=== PATIENT | female | born 1965 | race African-American/Black ===

== ENCOUNTER 2025-01-31 08:15 | Outpatient (REF) | payer OTHER, SELFPAY | END 2025-01-31 08:16 | disposition home or self-care (01) | LOC: HO.HPHYSR 08:15 | PROVIDERS: Visit Provider Physical Medicine & Rehabilitation | DX: M54.16 Radiculopathy, lumbar region (principal) | CPT/HCPCS: 62323; J2003; J3301; Q9967 ==

== ENCOUNTER 2025-01-31 08:15 | Outpatient (AMB) | payer OTHER, SELFPAY ==
[2025-01-31 08:16] VITALS: PULSE 87; TEMP 36.4; BMI 25.1
--- NOTE | 2025-01-31 08:16 | A.PHYSOV_ITS ---
Vital Signs 01/31/25 08:16 Height 6 ft 1 in Weight 190 lb BMI 25.1 Pulse 87 Temp 97.5 F Intake Visit Reasons: Lumbar Interlaminar Epidural L5-S1 Allergies codeine Allergy (Unknown, Verified 01/31/25 08:15) Unknown [facility] Surgical History (Updated 01/29/25 @ 09:51 by Kera Kaur MA) History of hernia repair (Unknown) History of gastric bypass (Unknown) Social History (Updated 01/29/25 @ 09:52 by Kera Kaur MA) Alcohol intake: current Alcohol intake frequency: holidays/special occasions only Use of substances other than those prescribed or required for medical reasons: No Have you been hit, kicked, punched, or otherwise hurt by someone within the past year? If so, by whom?: No Physical Exam Vital Signs: Last Vital Signs Temp 97.5 F 01/31/25 08:16 Pulse 87 01/31/25 08:16 BMI result Body Mass Index 25.1 Office Procedures Procedure Details: Procedure performed: L5-S1 lumbar epidural steroid injection Preop diagnosis: Lumbar radiculitis Postop diagnosis: The same Anesthesia: Local After informed consent was obtained patient was brought into the procedure room and placed in the prone position on the procedure table. Skin over the lumbar sacral area was prepped and draped in usual sterile manner. L5-S1 interlaminar space was visualized utilizing fluoroscopy. After skin was anesthetized with 1% lidocaine solution, 3.5 in 20 gauge Toughy needle was introduced percutaneously and advanced toward the epidural space at the indicated level. Loss of resistance technique was utilized. Needle placement was verified utilizing 3 cc of Omnipaque contrast solution. Excellent epidural spread was visualized without evidence of vascular uptake. Total volume of 8 cc containing 2 cc of 1% lidocaine, 40 mg of triamcinolone and normal saline solution were injected after negative aspiration for blood and cerebrospinal fluid. Radiation exposure was documented in the chart. Lumbar Interlaminar Epidural 24257- use with FL Gd order: Lumbar Interlaminar Epidural Steroid Injection 32505 Procedure code (CPT) selection complete Office Meds Kenalog 40 mg/mL suspension for injection Performing Provider: Franck Perez DO Performing Location: [facility] Administered by: Franck Perez DO on 01/31/25 08:40 Dose Route Admin Location Dispensed Lot Number Expiration Date [employer] 40 mg epidural 1 mL [address]-9 [employer] Total Dispensed Waste 1 mL 0 % lidocaine (PF) 10 mg/mL (1 %) injection solution Performing Provider: Franck Perez DO Performing Location: [facility] Administered by: Franck Perez DO on 01/31/25 08:40 Dose Route Admin Location Dispensed Lot Number Expiration Date [facility] [place] [employer] 50 mg epidural 5 mL [id number] [facility] Total Dispensed Waste 5 mL 0 % Omnipaque 300 300 mg iodine/mL intravenous solution Performing Provider: Franck Perez DO Performing Location: [facility] Administered by: Franck Perez DO on 01/31/25 08:40 Dose Route Admin Location Dispensed Lot Number Expiration Date [facility] [place] [employer] 3 mL epidural 10 mL [id number] [employer] [facility] Total Dispensed Waste 10 mL 70 % Assessment & Plan Assessment & Plan (1) Lumbar radiculopathy: Code(s): M54.16 - Radiculopathy, lumbar region Category: Medical Plan: Procedure Plan Procedure Orders: Orders AMB Lumbar Interlaminar Epidural Steroid Injection Today M54.16 - Radiculopathy, lumbar region FL Gd L Spine Interlaminar Inj Today M54.16 - Radiculopathy, lumbar region Coding Level of Care Code Procedure Only Diagnoses Lumbar radiculopathy M54.16 CPT Codes Lumbar Interlaminar Epidural Steroid I - 20424 - Lumbar Interlaminar Epidural: Lumbar Interlaminar Epidural Steroid Injection 30358 ([id number])
== END 2025-01-31 08:55 | disposition home or self-care (01) ==
PROVIDERS: Visit Provider Physical Medicine & Rehabilitation
DX: M54.16 Radiculopathy, lumbar region (principal)
CPT/HCPCS: 62323

== ENCOUNTER 2025-02-06 11:56 | Outpatient (REF) | payer OTHER, SELFPAY ==
--- NOTE | 2025-02-06 12:30 | EMG_ITS ---
Chief complaint: Chronic back pain, usually left-sided sciatica. Noted right footdrop 6 months ago. Although has noted some improvement on the strength of right foot. Had interlaminar epidural injection 01/31/2025 with improvement of the left sciatica. History of arthritis. Remote history of thyroid dysfunction when she was in her 20s. Reason for referral: Evaluate for peroneal neuropathy versus radiculopathy Referred by: Balaji BARBOSA Procedure done: Bilateral lower extremity NCS/EMG Precautions and/or limitations: None The limb temperature was monitored continuously and remained between 32-36 degrees C during the performance of the NCS. Nerve Conduction Studies Anti Sensory Summary Table ?Stim Site NR Onset (ms) Norm Onset (ms) Peak (ms) Norm Peak (ms) O-P Amp (?V) Norm O-P Amp Site1 Site2 Delta-0 (ms) Dist (cm) John (m/s) Norm John (m/s) Right Sup Peron Anti Sensory (Ankle) Lateral Leg NR <4.4 >5.0 Lateral Leg Ankle 14.0 Left Sural Anti Sensory (Lat Mall) Calf ? 3.8 4.8 <4.0 5.9 >5.0 Calf Lat Mall 3.8 14.0 37 ? 3.7 4.4 3.2 Right Sural Anti Sensory (Lat Mall) Calf ? 4.4 5.2 <4.0 4.1 >5.0 Calf Lat Mall 4.4 14.0 32 ? 4.6 5.3 5.3 Motor Summary Table ?Stim Site NR Onset (ms) Norm Onset (ms) O-P Amp (mV) Norm O-P Amp iAmp (mV) Amp (1st) (%) Site1 Site2 Delta-0 (ms) Dist (cm) John (m/s) Norm John (m/s) Right Peroneal Motor (Ext Dig Brev) Ankle NR <4.0 >2.5 Ankle Ext Dig Brev 0.0 B Fib NR B Fib Ankle 0.0 >40 Poplt ? 19.8 0.0 0.5 Poplt B Fib 0.0 >40 Left Tibial Motor (Abd Navarro Brev) Ankle ? 5.9 <5 5.8 >2.5 8.7 100.0 Ankle Abd Navarro Brev 5.9 0.0 Knee ? 16.6 4.0 7.2 69.0 Knee Ankle 10.7 43.0 40 >40 Right Tibial Motor (Abd Navarro Brev) Ankle ? 5.4 <5 6.2 >2.5 9.1 100.0 Ankle Abd Navarro Brev 5.4 0.0 Knee ? 16.3 5.2 7.6 83.9 Knee Ankle 10.9 42.0 39 >40 EMG ?Side Muscle Nerve Root Ins Act Fibs Psw Amp Dur Poly Recrt Int Pat Comment Right AbdHallucis MedPlantar S1-2 Nml Nml Nml Nml Nml 0 Nml Complete Right AntTibialis Dp Br Peron L4-5 Incr 1+ 1+ Nml Nml 0 Nml Complete Right PostTibialis Tibial L5, S1 Nml Nml Nml Nml Nml 0 Nml Complete Right MedGastroc Tibial S1-2 Nml Nml Nml Nml Nml 0 Nml Complete Right VastusMed Femoral L2-4 Nml Nml Nml Nml Nml 0 Nml Complete Left AbdHallucis MedPlantar S1-2 Nml Nml Nml Nml Nml 0 Nml Complete Left AntTibialis Dp Br Peron L4-5 Nml Nml Nml Nml Nml 0 Nml Complete Left PostTibialis Tibial L5, S1 Nml Nml Nml Nml Nml 0 Nml Complete Left MedGastroc Tibial S1-2 Nml Nml Nml Incr Incr 0 Nml Complete Left VastusMed Femoral L2-4 Nml Nml Nml Nml Nml 0 Nml Complete Right Peroneus Long Sup Br Peron L5-S1 Incr 1+ 1+ Nml Nml 0 Nml Complete Paraspinal EMG ?Side Muscle Nerve Root Ins Act Fibs Psw Comment Right Lumbar Upper Rami Nml Nml Nml Right Lumbar Mid Rami Nml Nml Nml Right Lumbar Lower Rami Nml Nml Nml Left Lumbar Upper Rami Nml Nml Nml Left Lumbar Mid Rami Nml Nml Nml Left Lumbar Lower Rami Incr 1+ 1+ FINDINGS: Right peroneal nerve showed absent response distally in below the knee. Very small amplitudes above the knee. Right tibial nerve showed prolonged distal latency, normal amplitude and slow conduction velocity. Left tibial nerve showed prolonged distal latency, normal amplitude and normal conduction velocity. Bilateral sural sensory nerves showed prolonged peak latency. Right superficial peroneal nerve showed absent response. Concentric needle EMG was performed in selected muscles of the bilateral lower extremity. Study revealed signs of electric abnormalities as shown in the table above. Right peroneus longus and tibialis anterior showed increased insertional activity, PSWs and fibrillations. Left medial gastrocnemius showed increased duration and amplitude. Left lower lumbar paraspinals showed increased insertional activity, PSWs and fibrillations. IMPRESSION: 1. This is an abnormal study. 2. 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 3. There is electrodiagnostic evidence for chronic left L5-S1 radiculopathy. 4. Can not rule out a more diffuse polyneuropathy. CLINICAL COMMENT: Watch out for any further weakness on other parts of her body. Consider repeat EMG in 3 months, sooner if more neurologic deficits or weakness develop. Thank you for your kind referral. Bela Prince MD, BINDU Board Certified, [place] [employer] and Rehabilitation (ABPMR) Board Certified, [place] Board [employer] Electrodiagnostic Medicine (ABEM) CODIN 66681 x 2 extremities MTDD
== END 2025-02-06 11:57 | disposition home or self-care (01) ==
LOC: HO.NEURO 11:56
PROVIDERS: PCP Physician Assistant; Visit Provider Physician Assistant
DX: M21.371 Foot drop, right foot (principal)
CPT/HCPCS: 95886; 95909

== ENCOUNTER → 2025-02-06 12:57 | Outpatient (BNV) | payer OTHER, SELFPAY | PROVIDERS: PCP Physician Assistant; Visit Provider Physical Medicine & Rehabilitation | DX: G57.31 Lesion of lateral popliteal nerve, right lower limb (principal); M54.42 Lumbago with sciatica, left side | CPT/HCPCS: 95886; 95909 ==

== ENCOUNTER 2025-02-18 09:11 | Outpatient (AMB) | payer OTHER, SELFPAY ==
--- NOTE | 2025-02-18 09:18 | A.PHYSOV ---
Vital Signs 02/18/25 09:19 Height 6 ft 1 in Weight 190 lb BMI 25.1 Intake Visit Reasons: F/U after injection 01/31/2025 Intake Note: Patient is a 59 year old female here today for follow up after 01/31/25 L5-S1 VENTURA. Technical Trainer Required: No Allergies codeine Allergy (Unknown, Verified 02/18/25 09:19) Unknown HPI Comments Details: History of Present Illness The patient is a 59 year old female presenting for a follow-up visit after receiving an epidural steroid injection for back and leg pain. She reports a 90% improvement in her pain since the procedure and is no longer in pain all day. Her sciatica has resolved, with the exception of two episodes during the first weekend after the injection, and she can now stand to perform activities like washing dishes without the pain she previously experienced. This was not her first injection; she had a prior negative experience that made her hesitant to undergo the procedure again. Currently, her primary complaint is a grinding or crunch feeling in her right sacroiliac joint area, which is painful. This pain is intermittent, occurring with activities like walking, and flared up for a couple of days after two separate instances of prolonged walking in the last two weeks. She also notes that she can move her right big toe down but is unable to lift it up. For pain management, she uses tramadol as needed, particularly at night when the pain is at its worst. She states she uses it sparingly and has not taken any this week. The patient had a nerve conduction study about a week ago with Dr. Lo, and the report is pending. During that study, the provider noted something and recommended a repeat test in three months. The patient has a history of a thyroid condition in her 20s, which came up during questioning at her nerve conduction study, but she has not been treated for it since that time. Pain Description - Onset and Timing: The patient reports her current pain is intermittent and often worse at night when lying down. - Quality and Character: She describes the pain as a crunch or grinding, bone on bone sensation. - Primary Location: The pain is localized to the right sacroiliac joint area in a circular pattern. - Severity: She currently rates her pain as 0 out of 10 at rest. - Exacerbating Factors: Pain is worsened by walking long distances and side bending. - Relieving Factors: A recent epidural injection provided 90% improvement in her previous back and leg pain. - Associated Symptoms: She reports an inability to lift her right great toe. Procedure; L5-S1 VENTURA January 2025 90% reduction of her pain - Tests and Diagnostics: A nerve conduction study was performed approximately one week ago; the report is pending. - The performing provider noted an unspecified finding and recommended a repeat study in 3 months. [facility] Surgical History History of hernia repair (Unknown) History of gastric bypass (Unknown) Social History Alcohol intake: current Alcohol intake frequency: holidays/special occasions only Patient Tobacco Use Status: Never used Tobacco Review of Systems Narrative Review of Systems - Constitutional: Reports feeling good. - Musculoskeletal: Reports intermittent, painful grinding in her right SI joint. - Neurological: Reports an inability to lift her right great toe. - Denies radicular leg pain. - Reports improved balance. - Endocrine: Reports a history of a thyroid condition in her 20s; denies current treatment. Physical Exam Exam Exam: Physical Exam - Musculoskeletal: Localized tenderness to palpation over the right sacroiliac joint. She is otherwise nontender. - Lumbar spine range of motion is non-provocative with forward flexion and extension. - Lateral bending is provocative. - Neurological: Motor strength examination reveals weakness of right great toe dorsiflexion (extensor hallucis longus). - weak EHL on the right. - she is otherwise neurovascularly intact. Vital Signs: BMI result Body Mass Index 25.1 Assessment & Plan Assessment & Plan (1) Lumbar radiculopathy: Code(s): M54.16 - Radiculopathy, lumbar region Category: Medical (2) Lumbar spondylosis: Code(s): M47.816 - Spondylosis without myelopathy or radiculopathy, lumbar region Category: Medical Plan Pain Management - Analgesia: The patient reports 90% pain relief in her back and leg following a recent epidural steroid injection. - She rates her current pain as 0/10 at rest. - She uses tramadol sparingly for breakthrough pain, primarily at night or after increased activity, and requests a refill. - Affect: She reports feeling much better and is no longer upset by being in constant pain. - Activities of Daily Living: She can now perform daily tasks like washing dishes without pain. - Prolonged walking has caused pain flares. - Adverse Effects: No adverse effects from medications were reported. - Aberrant Drug-Related Behaviors: The patient reports using tramadol sparingly and not every day, which is consistent with appropriate use. Plan Patient was informed and verbally consented to the use of an ambient scribe for clinic note documentation during this visit. 1. Chronic Low Back Pain With Right Sciatica The patient reports approximately 90% improvement in her back and leg pain following a recent epidural steroid injection. The benefits of the injection are expected to last 3 to 6 months and can be repeated every 4 months as needed. The patient will call the office if symptoms return, at which point another injection may be ordered. She was counseled to remain cautious with physical activities despite feeling better. A refill of tramadol for as-needed use will be provided. 2. Right Sacroiliac Joint Pain The patient complains of a new or unmasked grinding pain localized to the right SI joint. This will be monitored, and if it becomes a major problem, it can be targeted with a future injection. 3. Peripheral Neuropathy And Right Great Toe Weakness The patient reports an inability to lift her right great toe and has a history of a thyroid condition, which is a risk factor for neuropathy. The results from her recent nerve conduction study will be obtained and reviewed. The patient will be contacted to discuss the results and any further recommendations, including the suggested repeat study in 3 months. Discussion Notes I commended the patient on her excellent outcome from the epidural steroid injection, noting that she had the result we wish for everyone. I explained that the medication from the injection typically lasts for 3 to 6 months and can be repeated every 4 months if she continues to experience good relief. I advised her to call the office if the pain returns, and we may be able to order another injection without an office visit. We discussed her new complaint of grinding pain in the right SI joint, and I advised we would monitor this and could target it with an injection if it becomes a major problem. I informed her that I would obtain the report from her recent nerve conduction study to investigate her right great toe weakness and will contact her with the results. I provided anticipatory guidance, stressing that even though she feels better, the underlying problem still exists; she should continue to be careful, avoid aggravating activities, and get help with heavy tasks to prevent a recurrence of her pain. I agreed to send a refill for her tramadol to be used as needed. Patient Instructions - Even though you feel much better, it is important to remember you have a back condition. - Be smart about your activities and get help with heavy tasks, like moving an air conditioner from a window. - The pain relief from your injection is expected to last 3 to 6 months. - Call our office if your pain returns, and we can discuss repeating the injection, which can be done every 4 months. - A refill for tramadol will be sent to your pharmacy for you to use as needed for pain. - We will get the results of your recent nerve test and will call you to discuss them and any next steps. - You can follow the recommendation to repeat your nerve test in 3 months. - You may want to contact your primary care doctor to discuss your history of a thyroid condition. Medications: New tramadol 50 mg PO QID 28 tabs 0RF M54.16 - Radiculopathy, lumbar region tramadol May partial fill upon request 50 mg PO Q6H PRN 28 tabs 0RF pain 7 days M47.816 - Spondylosis without myelopathy or radiculopathy, lumbar region, M54.16 - Radiculopathy, lumbar region Coding Level of Care Code Est Pt Level 3 (39731) Diagnoses Lumbar radiculopathy M54.16 Lumbar spondylosis M47.816
[2025-02-18 09:19] VITALS: BMI 25.1
--- OUTSIDE RECORDS SUMMARY | 2025-02-18 09:47 | XMS_ITS | Clinical Summary ---
Author Organization [facility] Address [address] [place] [address] Phone Care Team Providers Care Corporate Ethics Officer Name Role Phone Ariela Esteban Primary Care Provider + Allergies Active Allergy Reactions Criticality Noted Date Comments Codeine Itching 03/16/2005 Medications ASCORBIC ACID, VITAMIN C, ORAL Take 1 Tab by mouth daily. Active calcium carbonate/vitamin D3 (CALCIUM + D ORAL) Take 1 tablet by mouth 1 (one) time each day. Active multivitamin with minerals (NAYA MULTIVITAMIN WITH MINERAL ORAL) 1 po twice daily Active acyclovir (ZOVIRAX) 5 % cream Apply small amount topically to lesions 4 to 6 times a day at onset of outbreak for up to 10 days. 4 Active cholecalciferol (VITAMIN D-3) 50 mcg (2,000 unit) capsule Take 1 Capsule by mouth daily. 4 Active dicyclomine (BENTYL) 20 mg tablet Take 2 Tablets by mouth every 6 hours. 4 Active ferrous sulfate 325 mg (65 mg elemental iron) tablet 1 tablet (325 mg total). Active levocetirizine (XYZAL) 5 mg tablet TAKE 1 TABLET BY MOUTH EVERY EVENING 3 Active lisdexamfetamine (VYVANSE) 20 mg capsule 1 capsule (20 mg total) 1 (one) time each day in the morning. 4 Active nicotine (NICODERM CQ) 21 mg/[address] 1 PATCH ONTO THE SKIN EVERY 24 HOURS. 4 Active pantoprazole (PROTONIX) 40 mg EC tablet 1 tablet (40 mg total). 4 Active venlafaxine XR (EFFEXOR-XR) 150 mg 24 hr capsule Take 1 capsule (150 mg total) by mouth 1 (one) time each day. Active tiZANidine (ZANAFLEX) 4 mg tabletIndications: Fibromyalgia Take 1 tablet (4 mg total) by mouth 1 (one) time each day if needed for muscle spasms. 90 tablet 1 5 Active ibuprofen (ADVIL,MOTRIN) 600 mg tablet Take 1 tablet (600 mg total) by mouth every 8 (eight) hours if needed for moderate pain. 30 each 5 Active ondansetron ODT (ZOFRAN-ODT) 8 mg disintegrating tabletIndications: Surgery follow-up Dissolve 1 tablet (8 mg total) on top of the tongue every 8 (eight) hours if needed for nausea or vomiting. 10 tablet 5 Active amLODIPine (NORVASC) 10 mg tabletIndications: Essential (primary) hypertension TAKE 1 TABLET BY MOUTH EVERY DAY 90 tablet 1 5 Active traMADoL (ULTRAM) 50 mg tabletIndications: Acute right-sided low back pain with right-sided sciatica Take 1 tablet (50 mg total) by mouth 2 (two) times a day if needed for severe pain. Max Daily Amount: 100 mg 14 tablet 5 Active valACYclovir (VALTREX) 500 mg tabletIndications: Herpesviral vulvovaginitis TAKE 1 TABLET BY MOUTH 1 TIME EACH DAY. 90 tablet 1 5 Active Active Problems Problem Noted Date Diagnosed Date Surgery follow-up 08/20/2024 History of unintended awareness under general an esthesia 03/12/2024 Abdominal cramping 01/09/2024 Chronic gastritis 01/09/2024 GERD (gastroesophageal reflux disease) 4 Helicobacter pylori (H. pylori) infection 2023 Overview (01/09/2024): Positive biopsy on December 17, 2019 IBS (irritable bowel syndrome) 01/09/2024 Tubular adenoma of colon 01/09/2024 Overview (01/09/2024): 9 polyps removed which were tubular adenomas and one was a high-grade dysplasia- needs repeat in 6 months Prediabetes 09/20/2023 Degenerative arthritis of me tacarpophalangeal joint of right thumb 05/31/2022 Arthritis of carpometacarpal (CMC) joint of righ t thumb 05/31/2022 Genital herpes 06/02/2021 Essential tremor 10/23/2020 Overview (01/09/2024): 09/2020 -Dr. Lira Fibromyalgia 08/21/2020 Asthma 12/06/2016 Attention deficit disorder (ADD) 12/06/2016 Hypertension 12/06/2016 Allergic rhinitis 11/03/2015 Anxiety and depression 05/06/2013 Overview (01/09/2024): psych Dr. Dhaliwal Osteoarthritis of lumbar spine 04/29/2009 POAG (primary open-angle glaucoma) 12/21/2007 Goiter 11/17/2005 Tumors of body of uterus, delivered 11/17/2005 Tobacco abuse disorder Encounters Date Type Department Care Team Description 12/23/2024 9:30 AM EDT Office Visit Internal Medicine - [address] [place] [address] Ariela Esteban, PA Primary hypertension (Primary Dx); Fibromyalgia; Gastroesophageal reflux disease, unspecified whether esophagitis present; Prediabetes; Anxiety and depression; Attention deficit disorder, unspecified type; Tobacco abuse disorder; Chronic right-sided low back pain with right-sided sciatica 11/19/2024 6:27 PM EDT - 11/19/2024 11:59 PM EDT Hospital Encounter Radiology Department - [address] [address] Radiculopathy, lumbar region; Foot drop, right foot Discharge Disposition: Home or Self Care from Last 3 Months Immunizations Immunization Administration Dates Next Due Influenza trivalent, with pr eservative (Fluzone; Afluria) 6mo and older 11/15/2007 Pneumococcal polysaccharide 23 valent (Pneumovax 23) 2yo and older 11/03/2015 Tdap Tetanus diptheria acell ular pertussis (Boostrix; Adacel) 7yo and older 11/15/2007 Surgical History Surgery Date Site/Laterality Comments APPENDECTOMY PROCEDURE: VT APPENDECTOMY CHOLECYSTECTOMY PROCEDURE: VT LAPAROSCOPY SURG CHOLECYSTECTOMY ESOPHAGOGASTRODUODENOSCOPY 03/03/2008 PROCEDURE: VT EGD TRANSORAL BIOPSY SINGLE/MULTIPLE; COMMENT: s/p gastric bypass, widely patent gastro-jejunal anastomosis. Gastric bx:Chronic gastritis HPylori+ (treated) GASTRIC BYPASS 2003 PROCEDURE: VT GASTRIC RSTCV W/BYP W/SM INT RCNSTJ LIMIT ABSRPJ; COMMENT: Florin en Y COLONOSCOPY PROCEDURE: HISTORICAL COLONOSCOPY; COMMENT: Performed several years ago along with an endoscopy performed for abdominal pain COLONOSCOPY 12/17/2019 PROCEDURE: HISTORICAL COLONOSCOPY; COMMENT: polyps with HGD UPPER GASTROINTESTINAL ENDOSCOPY 12/17/2019 PROCEDURE: UPPER GI ENDOSCOPY/EXAM; COMMENT: post bypass, random biopsy pending OTHER SURGICAL HISTORY 04/13/2020 PROCEDURE: HISTORICAL VULVA SURGERY; COMMENT: removal vulvar mass x 2 (benign pathology) Dr. Unger COLONOSCOPY 06/23/2020 PROCEDURE: HISTORICAL COLONOSCOPY; COMMENT: three small tubular adenomas HAND SURGERY 2017 Left PROCEDURE: HISTORICAL HAND SURGERY; COMMENT: Thumb CMC Arthroplasty, Dr Gardner UTERINE FIBROID SURGERY FINGER SURGERY 06/13/2024 Right thumb; trapeziectomy w/ interpositional arthroplasty Medical History Medical History Date Comments Tumors of body of uterus, delivered 11/17/2005 DX:Tumors of body of uterus, delivered POAG (primary open-angle glaucoma) 12/21/2007 DX:POAG (primary open-angle glaucoma) Allergic rhinitis 11/03/2015 DX:Allergic rh initis Asthma 12/06/2016 DX:Asthma Attention deficit disorder (ADD) 12/06/2016 DX:Attention deficit disorder (ADD) DDD (degenerative disc disea se), lumbar 10/30/2015 DX:DDD (degenerative disc di sease), lumbar History of bariatric surgery 02/18/2008 DX: History of bariatric surgery; COMMENT: Aminata History of Helicobacter pylo ri infection 03/06/2009 DX:History of Helicobacter p ylori infection Hypertension 12/06/2016 DX:Hypertension Lumbar spondylosis 04/29/2009 DX:Lumbar spo ndylosis GERD (gastroesophageal reflux disease) DX:GERD (gastroesophageal reflux disease) Anxiety and depression 05/06/2013 DX:Anxiet y and depression; COMMENT: psych Dr. Dhaliwal IBS (irritable bowel syndrome) D X:IBS (irritable bowel syndrome) Family history of colon canc er in father DX:Family history of colon c ancer in father; COMMENT: Father recently diagnosed in his 80s Helicobacter pylori (H. pylo ri) infection DX:Helicobacter pylori (H. p ylori) infection; COMMENT: Positive biopsy on December 17, 2019 Tubular adenoma of colon DX:Tubu lar adenoma of colon; COMMENT: 9 polyps removed which were tubular adenomas and one was a high-grade dysplasia-needs repeat in 6 months Nausea DX:Nausea Chronic gastritis DX:Chronic gas tritis Abdominal cramping DX:Abdominal cramping Fibromyalgia DX:Fibromyalgia Essential tremor 10/23/2020 DX:Essential tr emor; COMMENT: Saw Dr. Eduardo Prediabetes DX:Prediabetes Abdominal cramping DX:Abdominal cramping Colon polyp DX:Colon polyp Adverse effect of anesthesia Pt could hear while under anesthsia Hyperlipidemia Chronic pain disorder Fibromyalg ia Arthritis Joint pain Tobacco abuse disorder Family History Medical History Relation Name Comments Arthritis Brother 1 Glaucoma Brother 1 2 brothers with glaucoma Other: epilepsy Brother 2 Arthritis Father Colon cancer Father Heart attack Father Prostate cancer Father 70's Glaucoma Maternal Grandfather Glaucoma Maternal Grandmother Arthritis Mother Cataracts Mother Hypertension Mother Lung cancer Uncle maternal Uncle CA Blindness Neg Hx Macular degeneration Neg Hx Strabismus Neg Hx Relation Name Status Comments Brother 1 Brother 2 Father (Age 90) kidney [place], [place] Maternal Grandfather Maternal Grandmother Mother (Age 87) Uncle Social History Tobacco Use Types Packs/Day Years Used Date Smoking Tobacco: Every Day Cigarettes Smokeless Tobacco: Never Tobacco Cessation:Ready to Q uit: Not Asked; Counseling Given: Not Answered Alcohol Use Standard Drinks/Week Comments No 0 (1 standard drink = 0.6 oz pur e alcohol) Housing Instability Answer Date Recorde d Are you worried that in the next 2 months you may not have stable housing? No 12/22/2024 Food Access & Nutrition Answer Date Rec orded Do you have access to a vari ety of food including fruits and vegetables? Yes 12/22/2024 Access to Healthcare Answer Date Record ed Within the last 3 months, ho w many times did you visit the emergency department for your medical care? 0 12/22/2024 Health Literacy Answer Date Recorded How often do you need to hav e someone help you when you read instructions, pamphlets, or other written material from your doctor or pharmacy? Sometimes 12/22/2024 Caregiver: How often do you need to have someone help you when you read instructions, pamphlets, or other written material from your doctor or pharmacy? Not on file 12/22/2024 Financial Risk Answer Date Recorded How hard is it for you to pa y for the very basics like food, housing, medical care, and air conditioning / heating? Somewhat hard 12/22/2024 Transportation Answer Date Recorded Has the lack of transportati on kept you from meetings, work, or from getting things needed for daily living? No Has the lack of transportati on kept you from medical appointments or from getting medications? No 12/22/2024 Social Isolation Answer Date Recorded How often do you feel lonely or isolated from th ose around you? Never 12/22/2024 Food Risk Answer Date Recorded Within the past 12 months we worried whether our food would run out before we got money to buy more. Never true 12/22/2024 Within the past 12 months th e food we bought just didn't last and we didn't have money to get more. Never true 12/22/2024 Dependent Care Answer Date Recorded Do you need help finding or paying for care for your loved ones. For example, childrens club attendant or elderly care for an older adult? Yes 12/22/2024 Education Answer Date Recorded Do you think completing more education or training, like finishing a GED, going to college, or learning a trade, would be helpful for you? No 12/22/2024 Employment and Income Answer Date Recor ded During the last four weeks, have you been actively looking for work? No 12/22/2024 Living Situation Answer Date Recorded What is your living situation? Unrecognized valu e 12/22/2024 Interpersonal Safety Answer Date Record ed Physical Abuse Unrecognized value 03/12/2024 Verbal Abuse Unrecognized value 03/12/2024 Comments No Sex and Gender Information Value Date Recorded Sex Assigned at Female 03/12/2024 11:05 AM EST Legal Sex Female 3:32 AM EST Gender Identity Female 03/12/2024 11:05 AM EST Sexual Orientation Straight 03/12/2024 11 :05 AM EST Obstetrics History Para Term AB IAB SAB Ectopic Multiple Livin g Live Births 2 Last Filed Vital Signs Vital Sign Reading Time Taken Comments Blood Pressure 158/109 12/23/2024 9:21 AM EDT Pulse 89 12/23/2024 9:18 AM EDT Temperature 36.2 C (97.2 F) 12/23/2024 9:18 AM EDT Respiratory Rate 16 06/13/2024 11:0 6 AM EDT Oxygen Saturation 96% 12/23/2024 9:18 AM EDT Inhaled Oxygen Concentration - - Weight 85.2 kg (187 lb 12.8 oz) 12/23/2024 9:18 AM EDT Height 185.4 cm (6' 1 ) 12/23/2024 9:18 AM EDT Body Mass Index 24.78 12/23/2024 9:18 AM EDT Plan of Treatment Upcoming Encounters Date Type Department Care Team (Late st Contact Info) Description 03/11/2025 8:30 AM EST Office Visit Gastroenterology - [address] [facility] [address] [place] [id number] Charis Mckeon PA [address] [facility] [address] [place] [address] Health Maintenance Due Date Last Done Comments Drug Screen 1965 Non-Opioid Controlled Substance Agreement 1965 RSV Immunization Adult Patients (1 - Risk 50-74 years 1-dose series) 2014 Zoster Vaccines (1 of 2) 2014 Pneumococcal Vaccine: 50+ Years (2 of 2 - PCV) 11/02/2016 11/03/2015 DTaP,Tdap,and Td Vaccines (2 - Td or Tdap) 11/14/2017 11/15/2007 Hepatitis C Screening 02/05/2022 Medicare Annual Wellness Visit 02/05/2022 COVID-19 Vaccine ( season) 2024 08/21/2021, 02/12/2021, 06/05/2020, Additional history exists Influenza Vaccine (#1) 2024 11/15/2007 Hypertension/CHF/CAD Annual BMP Blood Test 02/05/2025 02/06/2024, 12/21/2023, 12/21/2023, Additional history exists Social Influencers of Health Screening 12/22/2025 12/22/2024 Breast Cancer Screening 01/07/2026 01/08/20, 06/08/2021, 01/20/2020 Colorectal Cancer Screening: Colonoscopy 03/12/2026 03/12/2024, 06/23/2020 Cervical Cancer Screening: HPV 05/27/2027 05/26/2022 Cholesterol Screening (Lipid Panel) 09/05/2028 09/06/2023, 09/06/2023 Osteoporosis Screening (Bone Density Screening) 01/07/2034 01/08/2024 HIV Screening Completed 06/05/2006 Depression Screening Completed 12/22/2024 HIB Vaccines Aged Out No longer eligi ble based on patient's age to complete this topic HPV Vaccines Aged Out No longer eligi ble based on patient's age to complete this topic Hepatitis A Vaccines Aged Out No long er eligible based on patient's age to complete this topic Hepatitis B Vaccines Aged Out No long er eligible based on patient's age to complete this topic IPV Vaccines Aged Out No longer eligi ble based on patient's age to complete this topic MMR Vaccines Aged Out No longer eligi ble based on patient's age to complete this topic Meningococcal ACWY Vaccine Aged Out N o longer eligible based on patient's age to complete this topic Meningococcal B Vaccine Aged Out No l onger eligible based on patient's age to complete this topic RSV Immunization Patients Under 20 months Aged Out No longer eligible based on patient's age to complete this topic Varicella Vaccines Aged Out No longer eligible based on patient's age to complete this topic Goals Goal Patient Goal Type Associated Problems Recent Progress Patient-Stated? Author <enter goal here> General On track( 025 10:44 AM EDT) Yes Ale Cruz, OT Note: OT PATIENT GOAL REGAIN PAINFREE FUNCTIONAL USE RIGHT HAND AND SLEEP WITHOUT PAIN OCCURENCE Medical Devices Implanted Type Area Crane Hooker Device Identifier Shelf Expiration Date Model / Serial / Lot Hollis Sut Quick Mini 3-0 Orth - Snone - [id number] Implanted:Qty: 1 on 06/13/2024 by Elle Chase MD at [facility] [employer] Implants Sports Med Right: Thumb [employer]NJ DEPUY MITEK [id number] 08/26/2026 [id number] / NONE / [id number] Procedures Procedure Name Priority Date/Time Associated Diagnosis Comments MR LUMBAR SPINE WO CONTRAST Routine 11/19/2024 6:53 PM EDT Radiculopathy, lumbar region Foot drop, right foot COLONOSCOPY Routine 03/12/2024 12:52 PM EST Hx of colonic polyps COMPREHENSIVE METABOLIC PANEL Routine 02/06/2024 1:51 PM EST Elevated alkaline phosphatase level MG MAMMO DIGITAL SCREENING W MIKAEL BILAT Routine 01/08/2024 8:58 AM EST Encounter for screening mammogram for breast cancer BD BONE DENSITY DXA AXIAL SKELETON Routine 01/08/2024 8:49 AM EST Post-menopausal Postmenopausal LIPID PANEL Routine 09/06/2023 HM HPV Routine 05/26/2022 HM HIV SCREENING Routine 06/05/2006 from Last 3 Months or Most Recently Relevant to Health Maintenance Results * MR Lumbar Spine wo Contrast (11/19/2024 6:53 PM EDT) Anatomical Region Laterality Modality L-spine, Spine Magnetic Resonan ce 11/20/2024 7:37 PM EDT Narrative 11/20/2024 7:53 PM EDT MRI of the lumbosacral spine without intravenous contrast. History low back pain with radiculopathy. Right foot drop. Examination was performed on 1.5 Dotty magnet without administration of intravenous contrast. Comparison with previous MRI of the lumbosacral spine from 02/28/2018. There is mild levoscoliosis. Labeling of the levels of the lumbar spine was performed to be concordant with prior examination. Last sizable disc L5-S1 level with rudimentary disc at S1-2 level. There is interval mild compression deformity of the superior endplate of the L3 without evidence of associated bone marrow edema suggestive of chronic nature. Other vertebral bodies are maintained in height. Conus medullaris terminates at L1-2 level. At T12-L1 level disc is desiccated with mild diffuse bulging of the disc and minimal retrolisthesis of T12 over L1. There is no spinal stenosis or nerve root compression. There is bilateral narrowing of the T12 neural foramina with effacement of the T12 nerve roots. At L1-2 level there is minimal retrolisthesis of L1 over L2. Disc is desiccated. There is diffuse bulging of the disc more prominent to the left. There is narrowing of the left lateral recess and left L1 neural foramen. There is effacement of the left L1 nerve root. At L2-3 level disc is relatively maintained in height. There is arm mild bulging of the disc to the left. There is mild hypertrophy of the facet joints. There is no spinal stenosis or nerve root compression. At L3-4 level disc is desiccated and mildly decreased in height. There is diffuse bulging of the disc and small tear of the annulus fibrosis on the left. There are hypertrophic degenerative changes in the facet joints more prominent on the right. There is narrowing of the lateral recesses and thumb L3 neural foramina, right more than left. There is compression of the right L3 nerve root. There is no significant central spinal stenosis. There is clumping of the nerve roots in the posterior aspect of the thecal sac. At L4-5 level there is mild anterior displacement of L4 over L5. There is desiccation of the disc and diffuse bulging of the disc. There are hypertrophic degenerative changes in the facet joints. There is mild spinal stenosis. There is narrowing of the L4 neural foramina bilaterally more prominent on the right. There is possible compression of the right L4 nerve root. At L5-S1 level there is mild retrolisthesis of L5 over S1. There is decreased height of the disc on the left and broadbase left lateral extrusion of the disc. There is obliteration of the left lateral recess and left L5 neural foramen. There is compression of the left L5 nerve root and effacement of the left S1 nerve root. When compared to his previous examination. There is interval progression of the degenerative changes at L5-S1 level. CONCLUSIONS: Mild new since previous examination chronic compression deformity of the superior endplate of the L3. Multilevel bony and discs degenerative changes more prominent at L5-S1 level. Stenosis of the lateral recesses and neural foramina at multiple levels with compression of the right L3 nerve root, possible compression of the right L4 nerve root. Compression of the left L5 nerve root and effacement of the left S1 nerve root. Mild spinal stenosis at L4-5 level. Additional findings. Please see details in the report. -------- FINAL REPORT -------- Dictated By: Faustina Sandhu Dictated Date: 11/20/2024 19:37 ET Assigned Physician: Faustina Sandhu Reviewed and Electronically Signed By: Faustina Sandhu Signed Date: 11/20/2024 19:53 ET Workstation ID: [id number] Transcribed By: Self Edit Transcribed Date: 11/20/2024 19:37 ET Procedure Note Faustina Sandhu MD - 11/20/2024 MRI of the lumbosacral spine without intravenous contrast. History low back pain with radiculopathy. Right foot drop. Examination was performed on 1.5 Dotty magnet without administration ofintravenous contrast. Comparison with previous MRI of the lumbosacralspine from 02/28/2018. There is mild levoscoliosis. Labeling of the levels of the lumbar spine was performed to be concordantwith prior examination. Last sizable disc L5-S1 level with rudimentarydisc at S1-2 level. There is interval mild compression deformity of the superior endplate ofthe L3 without evidence of associated bone marrow edema suggestive ofchronic nature. Other vertebral bodies are maintained in height. Conusmedullaris terminates at L1-2 level. At T12-L1 level disc is desiccated with mild diffuse bulging of the discand minimal retrolisthesis of T12 over L1. There is no spinal stenosis ornerve root compression. There is bilateral narrowing of the T12 neuralforamina with effacement of the T12 nerve roots. At L1-2 level there is minimal retrolisthesis of L1 over L2. Disc isdesiccated. There is diffuse bulging of the disc more prominent to theleft. There is narrowing of the left lateral recess and left L1 neuralforamen. There is effacement of the left L1 nerve root. At L2-3 level disc is relatively maintained in height. There is arm mildbulging of the disc to the left. There is mild hypertrophy of the facetjoints. There is no spinal stenosis or nerve root compression. At L3-4 level disc is desiccated and mildly decreased in height. There isdiffuse bulging of the disc and small tear of the annulus fibrosis on theleft. There are hypertrophic degenerative changes in the facet joints moreprominent on the right. There is narrowing of the lateral recesses andthumb L3 neural foramina, right more than left. There is compression ofthe right L3 nerve root. There is no significant central spinal stenosis.There is clumping of the nerve roots in the posterior aspect of the thecalsac. At L4-5 level there is mild anterior displacement of L4 over L5. There isdesiccation of the disc and diffuse bulging of the disc. There arehypertrophic degenerative changes in the facet joints. There is mildspinal stenosis. There is narrowing of the L4 neural foramina bilaterallymore prominent on the right. There is possible compression of the right [id number] root. At L5-S1 level there is mild retrolisthesis of L5 over S1. There isdecreased height of the disc on the left and broadbase left lateralextrusion of the disc. There is obliteration of the left lateral recessand left L5 neural foramen. There is compression of the left L5 nerve rootand effacement of the left S1 nerve root. When compared to his previous examination. There is interval progressionof the degenerative changes at L5-S1 level. CONCLUSIONS: Mild new since previous examination chronic compressiondeformity of the superior endplate of the L3. Multilevel bony and discsdegenerative changes more prominent at L5-S1 level. Stenosis of thelateral recesses and neural foramina at multiple levels with compressionof the right L3 nerve root, possible compression of the right L4 nerveroot. Compression of the left L5 nerve root and effacement of the left [id number] root. Mild spinal stenosis at L4-5 level. Additional findings. Please seedetails in the report. -------- FINAL REPORT -------- Dictated By: Faustina Sandhu Dictated Date: 11/20/2024 19:37 ET Assigned Physician: Faustina Sandhu Reviewed and Electronically Signed By: Faustina Sandhu Signed Date: 11/20/2024 19:53 ET Workstation ID: [id number] Transcribed By: Self Edit Transcribed Date: 11/20/2024 19:37 ET Balaji BARBOSA IM MRI PROCEDURES Final Resul t * COLONOSCOPY Anesthesia - MAC; [facility] ENDOSCOPY (03/12/2024 12:52 PM EST) Anatomical Region Laterality Modality Other 03/12/2024 12:3 1 PM EST Impressions 03/12/2024 12:55 PM EST - Five 5 to 8 mm polyps in the transverse colon, removed with a cold snare. Resected and retrieved. - Two 6 to 12 mm polyps in the descending colon, removed with a hot snare. Resected and retrieved. - The examination was otherwise normal on direct and retroflexion views. Recommendation: - Await pathology results. - Repeat colonoscopy in 2 years for surveillance. Narrative 03/12/2024 12:55 PM EST [facility] GI Patient Name: Becky Abarca Procedure Date: 03/12/2024 12:31 PM Date of : 1965 Age: 58 Room: ROOM 14 Gender: Female Note Status: Finalized Attending MD: Sarwat Jain MD, Procedure Date No Time: 03/12/2024 Procedure: Colonoscopy Indications: High risk colon cancer surveillance: Personal history of colonic polyps Providers: Sarwat Jain MD Referring MD: Moy Ferrer MD Medicines: Propofol per Anesthesia Complications: No immediate complications. Estimated Blood Loss: Estimated blood loss: none. Procedure: Pre-Anesthesia Assessment: - ASA Grade Assessment: II - A patient with mild systemic disease. After I obtained informed consent, the scope was passed under direct vision. Throughout the procedure, the patient's blood pressure, pulse, and oxygen saturations were monitored continuously.The Colonoscope was introduced through the anus and advanced to the cecum, identified by appendiceal orifice and ileocecal valve. Findings: The perianal and digital rectal examinations were normal. Five sessile polyps were found in the transverse colon. The polyps were 5 to 8 mm in size. These polyps were removed with a cold snare. Resection and retrieval were complete. Two pedunculated and sessile polyps were found in the descending colon. The polyps were 6 to 12 mm in size. These polyps were removed with a hot snare. Resection and retrieval were complete. The exam was otherwise without abnormality on direct and retroflexion views. Procedure Code(s): --- Professional --- 86320, Colonoscopy, flexible; with removal of tumor(s), polyp(s), or other lesion(s) by snare technique Diagnosis Code(s): --- Professional --- Z86.010, Personal history of colonic polyps D12.3, Benign neoplasm of transverse colon (hepatic flexure or splenic flexure) D12.4, Benign neoplasm of descending colon CPT copyright 2020 [employer]. All rights reserved. The codes documented in this report are preliminary and upon pension examiner review may be revised to meet current compliance requirements. Sarwat Jain MD 03/12/2024 12:55:04 PM This report has been signed electronically.Sarwat Jain MD Number of Addenda: 0 Note Initiated On: 03/12/2024 12:31 PM Scope In: Scope Out: Endoscopy Department at [facility] - [address] [place] [id number] Procedure Note Sarwat Jain MD - 03/12/2024 [facility] GI Patient Name: Becky Abarca Procedure Date: 03/12/2024 12:31 PM Date of : 1965 Age: 58 Room: ROOM 14 Gender: Female Note Status: Finalized Attending MD: Sarwat Jain MD, Procedure Date No Time: 03/12/2024 Procedure: Colonoscopy Indications: High risk colon cancer surveillance: Personalhistory of colonic polyps Providers: Sarwat Jain MD Referring MD: Moy Ferrer MD Medicines: Propofol per Anesthesia Complications: No immediate complications. Estimated Blood Loss: Estimated blood loss: none. Procedure: Pre-Anesthesia Assessment: - ASA Grade Assessment: II - A patient with mild systemic disease. After I obtained informed consent, the scope was passed under direct vision. Throughout theprocedure, the patient's blood pressure, pulse, and oxygen saturations were monitored continuously.The Colonoscope was introduced through the anus and advanced to the cecum, identified by appendiceal orifice and ileocecal valve. Findings: The perianal and digital rectal examinations were normal. Five sessile polyps were found in the transverse colon. The polyps were 5 to 8 mm in size. Thesepolyps were removed with a cold snare. Resection and retrieval were complete. Two pedunculated and sessile polyps were found inthe descending colon. The polyps were 6 to 12 mm insize. These polyps were removed with a hot snare.Resection and retrieval were complete. The exam was otherwise without abnormality ondirect and retroflexion views. Procedure Code(s): --- Professional --- 84422, Colonoscopy, flexible; with removal of tumor(s), polyp(s), or other lesion(s) by snare technique Diagnosis Code(s): --- Professional --- Z86.010, Personal history of colonic polyps D12.3, Benign neoplasm of transverse colon (hepatic flexure or splenic flexure) D12.4, Benign neoplasm of descending colon CPT copyright 2020 [employer]. All rights reserved. The codes documented in this report are preliminary and upon pension examiner reviewmay be revised to meet current compliance requirements. Sarwat Jain MD 03/12/2024 12:55:04 PM This report has been signed electronically.Sarwat Jain MD Number of Addenda: 0 Note Initiated On: 03/12/2024 12:31 PM Scope In: Scope Out: Endoscopy Department at [facility] - [address] [place] [phone] IMPRESSION: - Five 5 to 8 mm polyps in the transverse colon, removed with a cold snare. Resected andretrieved. - Two 6 to 12 mm polyps in the descending colon, removed with a hot snare. Resected and retrieved. - The examination was otherwise normal on directand retroflexion views. Recommendation: - Await pathology results. - Repeat colonoscopy in 2 years for surveillance. Moy Ferrer MD GI~PROCEDURE ORDERABLES Final Re sult * (ABNORMAL) Comprehensive metabolic panel (02/06/2024 1:51 PM EST) Sodium 142 133 - 145 mmol/L LAB CHEMISTRY METHOD 02/06/2024 7:41 PM [facility] Potassium 3.9 3.5 - 5.5 mmol/L LAB CHEMISTRY METHOD 02/06/2024 7:41 PM [facility] Chloride 111(H) 96 - 110 mmol/L LAB CHEMISTRY METHOD 02/06/2024 7:41 PM [facility] CO2 24 21 - 32 mmol/L LAB CHEMISTRY METHOD 02/06/2024 7:41 PM [facility] Anion Gap 7 3 - 11 LAB CHEMISTRY METHOD 02/06/2024 7:41 PM [facility] Glucose 82 70 - 100 mg/dL LAB CHEMISTRY METHOD 02/06/2024 7:41 PM [facility] BUN 14 5 - 25 mg/dL LAB CHEMISTRY METHOD 02/06/2024 7:41 PM [facility] Creatinine 0.51 0.50 - 1.10 mg/dL LAB CHEMISTRY METHOD 02/06/2024 7:41 PM [facility] eGFR 108 >=60 mL/min/1. 73m2 LAB CHEMISTRY METHOD 02/06/2024 7:41 PM [facility] Comment:Calculation based on the Chronic Kidney Disease Epidemiology Collaboration (CKD-EPI) equation refit without adjustment for race. BUN/Creatinine Ratio 27.5 LAB CHEMISTRY METHOD 02/06/2024 7:41 PM [facility] Calcium 9.8 8.5 - 10.5 mg/dL LAB CHEMISTRY METHOD 02/06/2024 7:41 PM [facility] AST (SGOT) 17 10 - 42 unit/L LAB CHEMISTRY METHOD 02/06/2024 7:41 PM [facility] ALT (SGPT) 29 10 - 60 unit/L LAB CHEMISTRY METHOD 02/06/2024 7:41 PM [facility] Alkaline Phosphatase 139(H) 42 - 121 unit/L LAB CHEMISTRY METHOD 02/06/2024 7:41 PM [facility] Total Protein 7.1 6.0 - 8.0 g/dL LAB CHEMISTRY METHOD 02/06/2024 7:[address] [facility] Albumin 4.2 3.2 - 5.0 g/dL LAB CHEMISTRY METHOD 02/06/2024 7:[address] [facility] Total Bilirubin 0.3 0.0 - 1.4 mg/dL LAB CHEMISTRY METHOD 02/06/2024 7:[address] [facility] Blood Venous blood specimen / Unknown Venipuncture / Unknown 02/06/2024 1:51 PM EST 02/06/2024 1:51 PM EST us Yolanda BARBOSA LAB BLOOD ORDERABLES Final Resul t [facility] [address] [place] [address], [place] [phone] * MG Mammo Digital Screening w Mikael bilat (01/08/2024 8:58 AM EST) Anatomical Region Laterality Modality Breast Bilateral Mammography 01/08/2024 12:4 3 PM EST Impressions 01/08/2024 12:44 PM EST No mammographic evidence of malignancy is seen. A negative mammogram in the presence of a clinically suspicious palpable abnormality does not preclude the possibility of malignancy or alter the indications for biopsy. BI-RADS CATEGORY: 1 - NEGATIVE RECOMMENDATION: Screening bilateral mammogram is recommended in 1 year. Mammo Location: [facility], [address] [place], [place], [address], . -------- FINAL REPORT -------- Dictated By: Becca aMthews Dictated Date: 01/08/2024 12:43 ET Assigned Physician: Becca Mathews Reviewed and Electronically Signed By: Becca Mathews Signed Date: 01/08/2024 12:44 ET Workstation ID: [id number] Transcribed By: Self Edit Transcribed Date: 01/08/2024 12:43 ET Narrative 01/08/2024 12:44 PM EST HISTORY: Screening. COMPARISON: 06/08/21, 01/20/20, 09/04/17 TECHNIQUE: Bilateral digital breast tomosynthesis was performed in the CC and MLO projections. Computer aided detection with iCAD ProFound AI 3D 3.1 was employed. BREAST DENSITY: B - There are scattered areas of fibroglandular density. FINDINGS: The breasts have increased in size and decreased in density since the most recent study, suggesting weight gain. No suspicious masses, grouped microcalcifications, or areas of architectural distortion are seen. The skin and vascularity are unremarkable. Procedure Note Becca Mathews MD - 01/08/2024 HISTORY: Screening. COMPARISON: 06/08/21, 01/20/20, 09/04/17 TECHNIQUE: Bilateral digital breast tomosynthesis was performed in the CCand MLO projections. Computer aided detection with iCAD ProFound AI 3D 3.1was employed. BREAST DENSITY: B - There are scattered areas of fibroglandular density. FINDINGS: The breasts have increased in size and decreased in density since the mostrecent study, suggesting weight gain. No suspicious masses, grouped microcalcifications, or areas ofarchitectural distortion are seen. The skin and vascularity areunremarkable. IMPRESSION: No mammographic evidence of malignancy is seen. A negative mammogram in the presence of a clinically suspicious palpableabnormality does not preclude the possibility of malignancy or alter theindications for biopsy. BI-RADS CATEGORY: 1 - NEGATIVE RECOMMENDATION: Screening bilateral mammogram is recommended in 1 year. Mammo Location: [facility], [address] [place] [address], [id number], . -------- FINAL REPORT -------- Dictated By: Becca Mathews Dictated Date: 01/08/2024 12:43 ET Assigned Physician: Becca Mathews Reviewed and Electronically Signed By: Becca Mathews Signed Date: 01/08/2024 12:44 ET Workstation ID: [id number] Transcribed By: Self Edit Transcribed Date: 01/08/2024 12:43 ET us Ariela C Kalnenieks PA IMG BI PROCEDURES Final Result * BD Bone Density DXA Axial Skeleton (01/08/2024 8:49 AM EST) Anatomical Region Laterality Modality Wrist, Hip, L-spine Bone Densito metry 01/08/2024 9:49 AM EST Impressions 01/08/2024 9:50 AM EST 1. Osteoporosis. 2. FRAX analysis yields a 10-year probability of major osteoporotic fracture of 16.4% and a 10-year probability of hip fracture of 1.8%. Code 14121 -------- FINAL REPORT -------- Dictated By: Bryan Lugo Dictated Date: 01/08/2024 09:49 ET Assigned Physician: Bryan Lugo Reviewed and Electronically Signed By: Bryan Lugo Signed Date: 01/08/2024 09:50 ET Workstation ID: [id number] Transcribed By: Self Edit Transcribed Date: 01/08/2024 09:49 ET Narrative 01/08/2024 9:50 AM EST HISTORY: The patient is a 58-year-old postmenopausal female with clinical concern for metabolic bone disease. FINDINGS: Dual energy x-ray absorptiometry of the lumbar spine and femurs is performed. The mean bone mineral density at L1-3 is 0.717 gm/cm2 which is 61% of that of young normals and 58% of that of age matched controls. This yields a T-score of -3.8 and a Z-score of -4.2 which is diagnostic of osteoporosis. The mean bone mineral density of the femurs bilaterally is 0.710 gm/cm2 which is 70% of that of young normals and 64% of that of age matched controls. This yields a T-score of -2.4 and a Z-score of -3.1 which is diagnostic of osteopenia. However, the T-score of the right femoral neck is -2.5 which is diagnostic of osteoporosis. Procedure Note Bryan Lugo MD - 01/08/2024 HISTORY: The patient is a 58-year-old postmenopausal female with clinicalconcern for metabolic bone disease. FINDINGS: Dual energy x-ray absorptiometry of the lumbar spine and femursis performed. The mean bone mineral density at L1-3 is 0.717 gm/cm2 whichis 61% of that of young normals and 58% of that of age matched controls.This yields a T-score of -3.8 and a Z-score of -4.2 which is diagnostic ofosteoporosis. The mean bone mineral density of the femurs bilaterally is 0.710 gm/wu0nnmew is 70% of that of young normals and 64% of that of age matchedcontrols. This yields a T-score of -2.4 and a Z-score of -3.1 which isdiagnostic of osteopenia. However, the T-score of the right femoral neckis -2.5 which is diagnostic of osteoporosis. IMPRESSION: 1. Osteoporosis. 2. FRAX analysis yields a 10-year probability of major osteoporoticfracture of 16.4% and a 10-year probability of hip fracture of 1.8%. Code 77112 -------- FINAL REPORT -------- Dictated By: Bryan Lugo Dictated Date: 01/08/2024 09:49 ET Assigned Physician: Bryan Lugo Reviewed and Electronically Signed By: Bryan Lugo Signed Date: 01/08/2024 09:50 ET Workstation ID: [id number] Transcribed By: Self Edit Transcribed Date: 01/08/2024 09:49 ET Ariela BARBOSA IMSabra DXA PROCEDURES Final Result * (ABNORMAL) Lipid panel (09/06/2023) [facility] LDL/HDL Ratio 3 0 - 4 Triglycerides 81 0 - 150 mg/dL Cholesterol 226(A) 0 - 200 mg/dL HDL 66 >=40 mg/dL LDL Cholesterol 144(A) 0 - 100 mg/dL Blood Venous blood specimen / Unknown Historical Provider LAB BLOOD ORDERABLES Brenda l Result * Cervical Cancer Screening: HPV (05/26/2022) [facility] Cervical Cancer Screening: HPV Negative, Abstracted Historical Provider HEALTH MAINTENANCE Final Result * HIV Screening (06/05/2006) HIV Screening Abstracted us Historical Provider HEALTH MAINTENANCE Final Result from Last 3 Months or Most Recently Relevant to Health Maintenance Insurance [employer] Member Subscriber Plan / Payer (Ef fective 2022-Present) Name:BECKY ABARCA Relation to Subscriber:Self Name:Becky Abarca Payer ID:[id number] Group ID:[id number] Type:Not on file Address: [place] [address] [place] [phone] Advance Directives * Full Code - Default (Latest Code Status on File) Date Activated Date Inactivated Comments 06/13/2024 6:51 AM 06/13/2024 2:09 PM This is orde r is used when code status has not been discussed with the patient, or code status is otherwise unknown/unconfirmed To update the patient's code status, place a code status order. Do not modify or discontinue any currently active code status orders. Care Teams Corporate Ethics Officer Relationship Specialty Start Date End Date Ariela Esteban PA [address] [address] PCP - General Internal Medicine 05/01/19
--- OUTSIDE RECORDS SUMMARY | 2025-02-18 09:47 | XMS_ITS | Clinical Summary ---
Author Organization [facility] Prior to 07/27/[address] [place] [address] Care Team Providers Care Global Account Manager Name Role Phone Ariela Esteban PA-C Primary Care Provider Allergies Active Allergy Reactions Criticality Noted Date Comments Codeine 09/20/2022 Oxycodone-Acetaminophen 09/20/2022 Medications Medication Sig Dispensed Refills Start Date End Date Status lisdexamfetamine (VYVANSE) 40 MG capsule Take 1 capsule (40 mg total) by mouth every morning. 0 Active valACYclovir (VALTREX) 500 MG tablet Take 1 tablet (500 mg total) by mouth daily. As needed 0 Active omeprazole (PriLOSEC) 20 MG capsule Take 1 capsule (20 mg total) by mouth 2 (two) times a day. 1 capsule by mouth twice a day before breakfast and supper 0 Active levocetirizine (XYZAL) 5 MG tablet Take 1 tablet (5 mg total) by mouth every evening. 0 Active amitriptyline (ELAVIL) tablet 25 mg Take 1 tablet (25 mg total) by mouth every night at bedtime. 0 Active triamcinolone acetonide (KENALOG-40) 40 MG/ML injection Inject 1 mL (40 mg total) into the articular space once. Inject 1 ml into the articular space once for 1 dose 0 Active dicyclomine (BENTYL) 10 MG capsule Take 1 capsule (10 mg total) by mouth 4 (four) times a day before meals and at bedtime. Take 4 capsules by mouth 4 times daily (before meals and nightly) 0 Active Acyclovir 5 % cream Apply topically every 3 (three) hours. Apply a small amount topically to lesions 4 to 6 times a day at onset of outbreak for up to 10 days 0 Active venlafaxine (EFFEXOR-XR) 75 MG 24 hr capsule Take 1 capsule (75 mg total) by mouth daily. 0 Active benztropine (COGENTIN) 1 MG/ML injection Inject 4 mL (4 mg total) into the muscle 2 (two) times a day. Inject 4 mg as directed 2 times daily 0 Active tiZANidine (ZANAFLEX) 4 MG tablet Take 1 tablet (4 mg total) by mouth every 6 (six) hours as needed. Take 1 tablet by mouth daily as needed for muscle spasms 0 Active acetaminophen (TYLENOL EXTRA STRENGTH) 500 MG tablet Take 2 tablets (1,000 mg total) by mouth every 6 (six) hours as needed. Take 2 tablets by mouth 3 times daily as needed for pain 0 Active famotidine (PEPCID) 20 MG tablet Take 1 tablet (20 mg total) by mouth 2 (two) times a day. Take 1 tablet by mouth twice a day as needed for heartburn 0 Active ondansetron (ZOFRAN) 4 MG tablet Take 1 tablet (4 mg total) by mouth as needed for nausea (every 8 hours as needed for nausea). 0 Active loperamide (IMODIUM A-D) 2 MG tablet Take 1 tablet (2 mg total) by mouth 4 (four) times a day as needed for diarrhea (1 tab by mouth 4 times daily as needed for diarrhea). 0 Active ferrous sulfate 325 (65 FE) MG tablet Take 1 tablet (325 mg total) by mouth every morning with breakfast. 0 Active Multiple Minerals-Vitamins (Multi Colby Minerals) TABS Take by mouth. 1 po twice daily 0 Active ascorbic acid (VITAMIN C) 500 MG tablet Take 1 tablet (500 mg total) by mouth daily. 0 Active Cholecalciferol (Vitamin D) 25 MCG (1000 UT) TABS Take by mouth. 1 tablet by mouth daily 0 Active ASCORBIC ACID PO Take 1 tablet by mouth daily. 0 Active Calcium Citrate-Vitamin D (CALCIUM + D PO) Take 1 tablet by mouth daily. 0 Active Family History Medical History Relation Name Comments Prostate cancer Father Relation Name Status Comments Father Alive Mother Social History Tobacco Use Types Packs/Day Years Used Date Smoking Tobacco: Every Day Cigarettes 40 Smokeless Tobacco: Never Tobacco Cessation:Ready to Q uit: Not Asked; Counseling Given: Not Answered Alcohol Use Standard Drinks/Week Comments Not Currently 0 (1 standard drink = 0.6 oz pur e alcohol) Sex and Gender Information Value Date Recorded Sex Assigned at Not on file Gender Identity Not on file Sexual Orientation Not on file Job Start Date Occupation Industry Not on file Not on file Not on file Last Filed Vital Signs Vital Sign Reading Time Taken Comments Blood Pressure 156/94 10/14/2022 2:34 PM EDT Pulse 97 10/14/2022 2:34 PM EDT Temperature 37.3 C (99.2 F) 10/14/2022 2:34 PM EDT Respiratory Rate - - Oxygen Saturation 100% 10/14/2022 2:34 PM EDT Inhaled Oxygen Concentration - - Weight 79.5 kg (175 lb 3.2 oz) 10/14/2022 2:34 P M EDT Height 185.4 cm (6' 1 ) 10/14/2022 2:34 PM EDT Body Mass Index 23.11 10/14/2022 2:34 PM EDT Plan of Treatment Health Maintenance Due Date Last Done Comments Hepatitis C Screening 1965 COVID-19 Vaccine (#1) 06/10/1965 Depression Screening 1976 Preventative Health Evaluation 1982 Cervical Cancer Screening (P ap Smear) 1985 Colon Cancer Screening (Colonoscopy) 2009 Breast Cancer Screening (Mammogram) 2014 Shingrix-Zoster Vaccine (1 of 2) 2014 Pneumococcal Vaccine (2 of 2 - PCV) 11/02/2016 11/03/2015 DTap / Tdap / Td (2 - Td or Tdap) 11/14/2017 008 Influenza Vaccine (#1) 2024 11/15/2007 RSV Adult > 60+ Yrs or Pregn ant (1 - 1-dose 75+ series) 12/11/2039 Hepatitis B Vaccines Aged Out No long er eligible based on patient's age to complete this topic RSV Ped < 20 months Aged Out No longe r eligible based on patient's age to complete this topic Care Teams Global Account Manager Relationship Specialty Start Date End Date Ariela Esteban PA-C [address] [place] [phone] PCP - General Physician Lumber Straightened 09/21/22
--- OUTSIDE RECORDS SUMMARY | 2025-02-18 09:47 | XMS_ITS | Encounter Summary ---
Author Organization [facility] Address [address] [place] [address] Care Team Providers Care Chief Innovation Officer Name Role Phone Ariela Esteban Primary Care Provider + Reason for Visit * Reason Onset Date Comments Med Refill 10/29/2024 Encounter Details Date Type Department Care Team ([facility] st Contact Info) Description 10/29/2024 Telephone Gastroenterology - [place] 175 [facility] 175 [facility] [address] [place] [phone] Emili Herman MD 299 [facility] [address] [place] [address] Social History Tobacco Use Types Packs/Day Years Used Date Smoking Tobacco: Every Day Cigarettes Smokeless Tobacco: Never Alcohol Use Standard Drinks/Week Comments No 0 (1 standard drink = 0.6 oz pur e alcohol) Interpersonal Safety Answer Date Record ed Physical Abuse Unrecognized value 03/12/2024 Verbal Abuse Unrecognized value 03/12/2024 Comments No Sex and Gender Information Value Date Recorded Sex Assigned at Female 03/12/2024 11:05 AM EST Legal Sex Female 3:32 AM EST Gender Identity Female 03/12/2024 11:05 AM EST Sexual Orientation Straight 03/12/2024 11 :05 AM EST documented as of this encounter Progress Notes * Eileen Ramirez - 10/29/2024 8:40 AM EDT Fax request for medication Sig: Take 1 tab by mouth daily - take in AM on empty stomach , wait 30 mins and then eat to activate pantoprazole (PROTONIX) 40 mg EC tablet [id number] [place], [place] - [address] [facility] STEPHANIE: 10-04-23 HAYDER NOV: None LVMTCB and schedule office visit with new provider documented in this encounter Plan of Treatment Upcoming Encounters Date Type Department Care Team (Late st Contact Info) Description 03/11/2025 8:30 AM EST Office Visit Gastroenterology - [address] [facility] [address] [place] [address] Charis Mckeon PA 299 [facility] [address] [place] [address] documented as of this encounter Goals Goal Patient Goal Type Associated Problems Recent Progress Patient-Stated? Author <enter goal here> General On track( 025 10:44 AM EDT) Yes Ale Cruz, OT Note: OT PATIENT GOAL REGAIN PAINFREE FUNCTIONAL USE RIGHT HAND AND SLEEP WITHOUT PAIN OCCURENCE documented as of this encounter Visit Diagnoses Not on filedocumented in this encounter Care Teams Chief Innovation Officer Relationship Specialty Start Date End Date Ariela Esteban PA 175 [facility] [address] [place] [address] PCP - General Internal Medicine 05/01/19 documented as of this encounter
== END 2025-02-18 09:45 | disposition home or self-care (01) ==
LOC: HO.HPHYS 09:12
PROVIDERS: Visit Provider Physician Assistant
DX: M54.16 Radiculopathy, lumbar region (principal); M47.816 Spondylosis without myelopathy or radiculopathy, lumbar region
CPT/HCPCS: 99213

== ENCOUNTER → 2025-02-18 09:11 | Outpatient (BNVA) | payer OTHER, SELFPAY | PROVIDERS: Visit Provider Physician Assistant | DX: M47.26 Other spondylosis with radiculopathy, lumbar region (principal); G89.29 Other chronic pain; M54.41 Lumbago with sciatica, right side; G62.9 Polyneuropathy, unspecified; M53.3 Sacrococcygeal disorders, not elsewhere classified | CPT/HCPCS: 99212 ==